=== PATIENT | male | born 1965 | race African-American/Black ===

== ENCOUNTER 2024-11-13 16:53 | Emergency (ER) | payer OTHER ==
[~2024-11-13] VITALS: Ht 177.8 cm; Wt 90.0 kg
[2024-11-13 16:55] VITALS: O2SAT 98
[2024-11-13 17:43] LABS: BASOPHILS % 0.8 % (0.0-2.0); EOSINOPHILS % 0.6 % (0.0-5.0); HEMOGLOBIN. 12.5 g/dL (14.0-18.0); LYMPHOCYTES % 17.6 % (20.0-50.0); MEAN CORPUSCULAR HEMOGLOBIN 32.2 pg (28.0-32.0); MEAN CORPUSCULAR HGB CONC 33.7 g/dL (31.0-37.0); MEAN CORPUSCULAR VOLUME 95.7 fL (80.0-94.0); MEAN PLATELET VOLUME 8.4 fl (7.4-10.4); MONOCYTES % 7.1 % (2.0-8.0); NEUTROPHILS % 73.9 % (40.0-76.0); PLATELET 173 x1000/uL (130-400); RED BLOOD CELL COUNT 3.87 mill/uL (4.7-6.1); RED CELL DISTRIBUTION WIDTH 13.2 % (11.6-14.6); WHITE BLOOD COUNT 3.9 x1000/uL (4.5-11.0)
[2024-11-13 17:50] LABS: CHLORIDE 104 mEq/L (98-107); POTASSIUM 3.6 mEq/L (3.5-5.1); SODIUM 141 mEq/L (136-145)
[2024-11-13 17:51] LABS: CARBON DIOXIDE 28 mEq/L (21-32)
[2024-11-13 17:52] LABS: CALCIUM 10.2 mg/dL (8.7-10.4)
[2024-11-13 17:55] LABS: D-DIMER 0.21 mg/L FEU (<0.50); PARTIAL THROMBOPLASTIN TIME 25.3 sec (23.4-31.0)
[2024-11-13 17:56] LABS: CREATININE 0.9 mg/dL (0.6-1.3); GLUCOSE 104 mg/dL (70-105)
[2024-11-13 17:57] LABS: TROPONIN I HIGH SENSITIVITY 13 ng/L (3.0-53); UREA NITROGEN BLOOD 14 mg/dL (9-23)
[2024-11-13] MEDS: ASPIRIN 81MG TABLET PO ONE (18:09)
[2024-11-13 19:01] VITALS: BP 138/87; PULSE 91; RESP 20; TEMP 36.89184; O2SAT 98
== END 2024-11-13 19:02 | disposition short-term general hospital (02) ==
LOC: ER 16:53 → EDBEDREQ 17:20 → CANBEDREQ 18:22 → ER 19:02
DX: R00.2 Palpitations (principal); R07.9 Chest pain, unspecified; F41.9 Anxiety disorder, unspecified; I10 Essential (primary) hypertension; Z86.73 Personal history of transient ischemic attack (TIA), and cerebral infarction without residual deficits; Z88.8 Allergy status to other drugs, medicaments and biological substances
CPT/HCPCS: 36415; 71045; 80048; 83880; 84484; 85025; 85379; 93005; 99285